=== PATIENT | female | born 1945 | race Caucasian/White ===

== ENCOUNTER 2021-04-09 11:17 | Emergency (ER) | payer OTHER, MEDICARE ==
[~2021-04-09] VITALS: Ht 165.1 cm; Wt 53.5 kg
[2021-04-09] MEDS ORDERED: LEVOTHYROXINE88 MCG PO (13:20)
[2021-04-09] MEDS ORDERED: LISINOPRIL10 MG (13:20)
[2021-04-09] MEDS ORDERED: AMOX TR-K CLV1 EACH PO (16:31)
--- NOTE | 2021-04-10 07:14 | CONS ---
[facility] [address], [place] [address] Signed DATE OF CONSULTATION: 04/09/2021 CHIEF COMPLAINT: Dog bite. HISTORY OF PRESENT ILLNESS: Subha is a 75-year-old female with a significant past medical history of smoking. She was bit by her neighbor's small dog on her left lateral calf where it joins the upper area of the Achilles tendon. She has been trying to doctor it at home but without a lot of success. 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 . She has been putting iodine in the wound and around the wound on a daily basis. Here in the emergency room, she was given her tetanus shot. She had to go see her primary care provider. One of our nurses asked that she be seen for general surgery service. PAST MEDICAL HISTORY: Hypertension, hypothyroidism. PAST SURGICAL HISTORY: None. SOCIAL HISTORY: She smokes a pack of cigarettes a day. Alcohol, none. She has 2 children. She lives with her daughter, Nikia Moise, in their apartment at [phone]. She no longer drives. She worked in [employer] her whole life. Deb Abarca is her nurse practitioner. FAMILY HISTORY: She thought her grandfather had some type of surgery for cancer and later back in the 50s. REVIEW OF SYSTEMS: She had 10 systems reviewed and really nothing more to add. ALLERGIES: None. MEDICATIONS: Levothyroxine 88 mcg p.o. daily, lisinopril 10 mg p.o. daily. PHYSICAL EXAMINATION: VITAL SIGNS: Blood pressure is 143/72, heart rate 62, respiratory rate 16, temperature is 98.2. She is 100% on room air. She is 5 feet 5 inches and 53 kg. Electronically Signed By: MINE ROLAND MD 04/10/21 0714 PATIENT NAME: SUBHA REIS CONSULTATION DATE OF : 41 REPORT #: [id number] PHYSICIAN: MINE ROLAND MD PCP: DEB ABARCA NP REPORT IS CONFIDENTIAL AND NOT TO BE RELEASED WITHOUT AUTHORIZATION [facility] [address], [place] [address] Signed GENERAL: Subha is a 75-year-old female, who appears older than her stated age. she has been a long-time smoker. She is quite thin cachexia. LUNGS: Mildly distant breath sounds. HEART: Regular rate and rhythm without murmur. ABDOMEN: Flat. EXTREMITIES: The left leg shows the bite wound about 2 cm wide x 3 cm in length in the lateral aspect of the left calf where it joins the Achilles tendon underneath is iodine on her leg and in the wound. The skin edges were scabbed in the fat underneath is dry. I do not really see any obvious granulation tissue. She has some surrounding erythema, but I think it is more chronic. I did push on the area from lateral to medial towards the wound and I really could not express any pus or feel any fluctuance. It seems to be all inflammatory rather than infectious. LABS: None. RADIOGRAPHIC STUDIES: None. ASSESSMENT AND PLAN: Subha is a 75-year-old female, who suffered a dog bite about a month ago. At this point, I think she needs some more aggressive conservative treatment. We are going to use saline soaked gauze and wrap it Jeet wrap twice a day and just wash it with soap and water. If she wants to use Medihoney that would be fine as well. We can provide her with some antibiotics and reassess next week in our [facility]. I will be out of town for a week or so and if she needed help then general surgeon certainly is available. Otherwise, I would see her when I get back. If it will granulate to any significant degree, I can skin graft much quicker. Unfortunately, she has very poor skin in that area and I do not think it is going to close otherwise unless it closes over a very long amount of time, which would be at least a couple of months. Based on our conversation, it seems her main concerns are financial. I think we will try this conservative route and reassess next week. She has expressed understanding and agrees with the above plan. Mine Roland MD ALB/MODL /[id number] Electronically Signed By: MINE ROLAND MD 04/10/21 0714 PATIENT NAME: SUBHA REIS CONSULTATION DATE OF : 41 REPORT #: [id number] PHYSICIAN: MINE ROLAND MD PCP: DEB ABARCA NP REPORT IS CONFIDENTIAL AND NOT TO BE RELEASED WITHOUT AUTHORIZATION [facility] [address] [place], [place] [address] Signed cc: MD Deb Vásquez Copies: MINE ROLAND MD ~ Electronically Signed By: MINE ROLAND MD 04/10/21 0714 PATIENT NAME: SUBHA REIS CONSULTATION DATE OF : 41 REPORT #: [id number] PHYSICIAN: MINE ROLAND MD PCP: DEB ABARCA NP REPORT IS CONFIDENTIAL AND NOT TO BE RELEASED WITHOUT AUTHORIZATION
== END 2021-04-09 16:59 | disposition home or self-care (01) ==
LOC: ED 11:17
DX: S81.852A Open bite, left lower leg, initial encounter (principal); W54.0XXA Bitten by dog, initial encounter; L97.929 Non-pressure chronic ulcer of unspecified part of left lower leg with unspecified severity; Z23 Encounter for immunization; I10 Essential (primary) hypertension; E03.9 Hypothyroidism, unspecified; Z79.899 Other long term (current) drug therapy
CPT/HCPCS: 90471; 90715; 99283-25

== ENCOUNTER 2023-01-23 10:00 | Inpatient (IN) | payer MEDICARE, OTHER ==
[~2023-01-23] VITALS: Ht 165.1 cm; Wt 53.2 kg
[2023-01-23] VITALS (9 sets, daily range): BP systolic 77–124; BP diastolic 38–71
[~2023-01-23 10:00] MED LIST: AMOX TR-K CLV1 EACH PO; LEVOTHYROXINE88 MCG PO; LISINOPRIL10 MG
[2023-01-23] MEDS ORDERED: LISINOPRIL20 MG PO (10:23)
[2023-01-23] MEDS ORDERED: ATORVASTATIN CA40 MG PO (10:23)
--- NOTE | 2023-01-23 15:25 | EKG ---
[facility] [address] [facility] [place] [address] \T\ T wave abnormality, consider lateral ischemia Abnormal ECG No previous ECGs available Confirmed by AMIRAH FISHER MD ([id number]) on 01/23/2023 3:25:25 PM Electronically Signed By: AMIRAH FISHER MD 01/23/23 1525 PATIENT NAME: GENI REIS Electrocardiogram DATE OF : 41 PHYSICIAN: AMIRAH FISHER MD REPORT #: [id number] REPORT IS CONFIDENTIAL AND NOT TO BE RELEASED WITHOUT AUTHORIZATION
--- NOTE | 2023-01-23 15:31 | NUR ---
DELAYED ENTRY DUE TO PATIENT CARES. PATIENT ADMITTED FROM ED TO ROOM 130, TRANSFERRED ON STRETCHER, MOVED TO HOSPITAL BED. VSS STABLE. PATIENT GIVEN ICE WATER AT HER REQUEST. HAS LEFT UPPER ARM SKIN TEAR FROM RECENT FALL, OTHERWISE NO SKIN ISSUES NOTED. PATIENT REPORTS SHE IS NORMALLY INDEPENDENT, LIVES IN AN APARTMENT WITH HER FAMILY, THREE DOGS AND A CAT. DENIES USING A MOBILITY DEVICE AT BASELINE. DENIES ANY FURTHER NEEDS AT THIS TIME.
--- NOTE | 2023-01-23 15:39 | NUR ---
INTO PATIENT ROOM, [place] GAMA AT THE BEDSIDE. PATIENT STATES SHE LIVES AT HOME WITH HER DAUGHTER YAYA AND SON IN LAW. PATIENT WISHES TO RETURN HOME WHEN STABLE. PATIENT STATES SHE IS INDEPENDENT AT HOME, PRIOR TO HER RECENT DECLINE. PATIENT STATES SHE HAS 3 STEPS INTO HER HOME AND 13 STAIRS WITH IN THE HOME. PATIENT STATES HAND RAILS ARE IN PLACE. PATIENT DOES RECV FOOD STAMPS AND DENIES OTHER FINANCIAL NEEDS AT THIS TIME. WILL CONTINUE TO SPEAK WITH PATIENT DURING HER STAY TO DETERMINE FURTHER CASE MANAGEMENT NEEDS.
--- NOTE | 2023-01-23 17:45 | NUR ---
LEFT UPPER ARM DRESSING REMOVED. PATIENT HAS TWO LARGE SKIN TEARS, THESE WERE CLEANED WITH WOUND JOINTER OPERATOR, ADAPTIC AND NON STICK DRESSING PLACED, WRAPPED WITH GAUZE, SECURED WITH TAPE. PICTURES TAKEN, PRINTED, AND PLACED IN CHART.
--- NOTE | 2023-01-23 18:14 | NUR ---
PATIENT MEDICATED FOR HEADACHE, ASSISTED TO TURN TO LEFT SIDE. PATIENT GETS VERY FRUSTRATED WITH CORDS AND WIRES THAT RESTRICT MOVEMENT WHEN SHE IS MOVING IN THE BED. PROVIDED APPLESAUCE HER DINNER WAS TOO SPICY TO FINISH. TOLERATING ORAL FLUIDS WELL.
--- NOTE | 2023-01-23 19:10 | NUR ---
PATIENT RESTING IN BED, DENIES ANY NEEDS. REPORTS SHE FEELS WELL. TOOK A SHORT NAP.
--- NOTE | 2023-01-23 19:13 | NUR ---
DR FISHER NOTIFIED OF / BP. VORB FOR 500CC LR OVER 30 MINUTES. REPEAT BP AND CALL HIM WITH UPDATE.
--- NOTE | 2023-01-23 19:49 | NUR ---
PT RESTING IN BED. ALERT AND ORIENTED, PT REPORTS DISDAIN FOR LINES AND B/P CUFF. CALLED WITH REPEAT B/P NO NEW ORDERS.
--- NOTE | 2023-01-23 22:24 | NUR ---
PT ALERT AND ORIENTED, SHE REPORTS SHE IS HAVING DIFFICULTY GETTING COMFORTABLE, SHE SAID "IM USED TO BE ABLE TO MOVE WITH OUT ALL THESE CORDS AND STUFF" PT ASSISTED TO TURN AND ADJUSTED LINES, SHE SAID SHE IS GOING TO TRY TO SLEEP NOW, NO REPORTS OF PAIN OR NAUSEA. PT FEELS THE CATHETER IS UNCOMFORTABLE, IT IS PATENT.
--- NOTE | 2023-01-23 23:58 | NUR ---
PT REQUESTED EDWIGE TIDWELL THIS IS PROVIDED, NO OTHER NEW CONCERNS AT THIS TIME
[2023-01-24] VITALS (7 sets, daily range): BP systolic 97–150; BP diastolic 55–83
--- NOTE | 2023-01-24 03:30 | NUR ---
PT RESTING IN BED EYES CLOSED, NO DISTRESS NOTED. SHE ALERT TO RN AT BEDSIDE TO PLACE B/P CUFF ON HER ARM, SHE BECAME ALERT AND ORIENTED.
--- NOTE | 2023-01-24 08:45 | NUR ---
DR FISHER HAS SEEN PATIENT, IS PLACING ORDERS TO D/C HARRISON, MOVE TO MED-SURG FLOOR, NO TELE. PATIENT IS A/O X4, IS EATING AND DRINKING WELL. PATIENT DENIES ANY NEEDS AT THIS TIME.
--- NOTE | 2023-01-24 09:43 | NUR ---
PATIENT UP TO BEDSIDE COMMODE AND BACK INTO BED WITH STANDBY ASSIST. PATIENT DENIES DIZZINESS, REPORTS LEGS FEEL MILDLY WEAK. DENIES ANY OTHER NEEDS AT THIS TIME.
--- NOTE | 2023-01-24 10:00 | NUR ---
CALL LIGHT ANSWERED, PATIENT UP TO BSC WITH SBA. PATIENT UNABLE TO VOID. PATIENT BACK TO BED, ICE CRAEM PROVIDED PER REQUEST. CALL LIGHT IN EASY REACH
--- NOTE | 2023-01-24 10:13 | NUR ---
PATIENT UP TO BEDSIDE COMMODE, PUT SELF BACK TO BED WITHOUT ANY DIFFICUTLY. REPORTS SHE CONTINUES TO FEEL THE URGE TO URINATE BUT HAS NOT BEEN ABLE TO SINCE HARRISON WAS DISCONTINUED. DR FISHER NOTIFIED, PYRIDIUM IS NOT AN OPTION DUE TO HER RENAL FUNCTION. NO NEW ORDERS RECEIVED.
--- NOTE | 2023-01-24 10:20 | NUR ---
REPORT RECEIVED FROM LANETTE BERNARDO. AWAITINGS PTS ARRIVAL TO MED/SURG.
--- NOTE | 2023-01-24 10:42 | NUR ---
Report to Francy GAMA, patient taken to med surg room 109 on bed with all belongings.
--- NOTE | 2023-01-24 10:52 | NUR ---
PT ARRIVED FROM CCU BY BED. PT UP IMMIDIATELY TO RESTROOM, 1 PERSON ASSIST. PT UNSTEADY ON FEET AND IMPULSIVE. FWW PROVIDED. BMAT LEVEL 3. PT HAVING BURNING WITH URINATION, PT REPORTS /10. PT HAS FREQUENCY AND URGENCY WELL, NEEDING TO GET UP EVERY 20 MINUTES TO "TRY TO GO PEE." PT ONLY PRODUCES URINE ONCE, 50ML YELLOW/CLOUDY. PT DENIES FLANK PAIN. SMALL SOFT BROWN BOWEL MOVEMENT NOTED WELL. GIRISH CARE DONE. PT UP AND DOWN FROM BED TO RESTROOM. PT ALERT AND ORINTED TO ALL. LUNG SOUNDS CLEAR. HEART TONES IRREGULAR, RATE IN THE 70'S. PTS SKIN VERY DRY. SCABS NOTED IN PLACES. DRESSING TO LEFT UPPER ARM REMAINS C/D/I. NO ADDITIONAL REQUESTS OR COMPLAINTS. CALL LIGHT WITHIN REACH. BED ALARM ON.
--- NOTE | 2023-01-24 11:52 | NUR ---
PT CONTINUES TO CALL EVERY 2-3 MINUTES WANTING TO GET UP TO URINATE. EDUCATION DONE WITH PT. PT HAS DIFFICULTY RETAINING EDUCATION. PT CONTINUES TO STATE "YOU JUST WON'T LET ME PEE." PT DESCRIBES PAIN "RIGHT WHERE I PEE." DR NATALIA STEWART. ORDERS GIVEN FOR UROJET. ORDERS ENTERED, REPEAT BACK PERFORMED. UROJET GELL APPLIED. PT SEEN TO WIPE FROM BACK TO FRONT, GETTING STOOL INTO GIRISH AREA. PT ASSISTED WITH GIRISH CARE PRIOR TO UROJET APPLICATION. PT WORKING WITH OCCUPATIONAL THERAPY. NO ADDITIONAL REQUESTS OR COMPLAINTS. CALL LIGHT WITHIN REACH.
--- NOTE | 2023-01-24 12:45 | NUR ---
THIS RN TO ROOM TO CHECK ON PT. PT UP TO RESTROOM AGAIN, UNABLE TO VOID, CONTINUES TO REPORT NEED. CRANBERRY JUICE PROVIDED. STAND BY ASSIST WITH FWW BACK TO BED. IV FLUIDS INFUSING. PO FLUIDS ENCOURAGED. NO ADDITIONAL REQUESTS OR COMPLAINTS. CALL LIGHT WITHIN REACH. BED RAILS UP. BED ALARM ON.
--- NOTE | 2023-01-24 13:18 | NUR ---
PT CALL LIGHT ON. PT REQUESTS ASSISTANCE UP TO RESTROOM. ONE PERSON ASSIST WITH FWW UP TO RESTROOM FOR LINE AND TUBE MANAGEMENT. PT VOIDS VERY SMALL AMOUNT ~25ML YELLOW URINE. GIRISH CARE PER PT, EDUCATION R/T WIPING FRONT TO BACK CONTINUES. 1 PERSON ASSIST WITH FWW BACK TO BED. IV FLUIDS CONTINUE. PO FLUIDS ENCORUAGED. ICE WATER REFILLED. NO ADDITIONAL REQUESTS OR COMPLAINTS. CALL LIGHT WITHIN REACH. BED RAILS UP.
--- NOTE | 2023-01-24 13:49 | NUR ---
THIS RN TO ROOM TO CHECK ON PT. STAFF REPORTS PT CONTINUES TO NEED TO GET UP EVERY 2-3 MINUTES. COMODE PLACED AT BEDSIDE TO ALLOW PT THE FREEDOME TO GET UP AND DOWN ON HER OWN. PT CONTINUES TO REPORT 9/10 BURNING PAIN AND URGE TO VOID "CONSTANTLY." PT RARELY VOIDS WHEN UP TO COMODE. ADDITIONAL CRANBERRY JUICE PROVIDED. PT VERY AGITATED, STATING "GOD DAMN" "SHIT" FREQEUNTLY. PT ENCORUAGED TO CALL WITH ADDITIONAL NEEDS. CALL LIGHT WITHIN REACH.
--- NOTE | 2023-01-24 14:24 | NUR ---
AFTERNOON ASSESSMENT DUE. THIS RN TO ROOM. PT VERY AGITATED, CRYING OUT AND COMPLAINTS OF BURNING PAIN AND "CONSTANT" URGENCY. PT UP AND DOWN CONTINIOUSLY TO THE BEDSIDE COMODE. VOIDS VERY SMALL AMOUNTS AT TIMES, OTHER TIMES NO VOID NOTED AT ALL. PT REPORTS ONGOING 9/10 "BURNING" PAIN IN GIRISH AREA. PT STATES "IT STEPHENS WHEN I PEE." LUNG SOUNDS REMAIN CLEAR. PT CONTINUES TO DENY FLANK PAIN. FREQUENT LOOSE/SOFT BROWN BOWEL MOVEMENTS NOTED WELL. PT ASSISTED WITH GIRISH CARE. PT CONTINUES TO WIPE BACK TO FRONT WITH STOOL SEEN IN THE GIRISH AREA. PT VERBALIZES UNDERSTANDING OF EDUCATION AND STATES "i JUST CAN'T DO IT THAT WAY." PT REPORTS AN OLD INJURY TO HER RIGHT WRIST THE RESON WHY SHE IS UNABLE TO ADJUST WIPING TECHNIQUE. OCCUPATIONAL THERAPY AWARE AND STRATIGIZING WITH PT. NO CHANGES TO SKIN. DR FISHER CALLED AND UPDATED REGARDING PTS PAIN AND AGITATION, [employer]IES ORDERED. NO LONGER AVALIABLE PER PHARMACIST. DR FISHER CONSIDERING ADDITONAL MEDICATIONS, AWAITING NEW ORDERS. PT UPDATED ON PLAN OF CARE. ADDITIONAL ICE WATER AND CRANBERRY JUICE PROVIDED. AGIATION CONTINUES. PT ENCOARUGED TO CALL AT ANY TIME. CALL LIGHT WITHIN REACH. PT CONTINUES TO GET UP AND DOWN FROM BED TO COMODE EVERY 30 SECONDS TO 1 MINUTE, INDEPENDANT WITH THIS TRANSFER.
--- NOTE | 2023-01-24 14:58 | NUR ---
PT HERE FOR GRADY AND UROSEPSIS. PT UP AND DOWN FREQUENTLY TO RESTROOM AND BESIDE COMODE THIS SHIFT WITH 1 PERSON ASSIST FOR LINE AND TUBE MANAGEMENT AND FWW. PT TOLERATING REGULAR DIET WITH MINIMAL APPITITE. PT AGIATATED THIS SHIFT AND REPORTING CONSTANT NEED TO VOID AND BURNING. PT VOIDS IN 10-25ML AMOUNTS, HARRISON CATHTER DC'D THIS MORNING. PT VOIDING QUANITTY SUFFICIENT SO FAR THIS SHIFT. FREQUENT LOOSE BROWN BOWEL MOVEMENTS NOTED WELL. PT REPORTS 9/10 URINARY PAIN, AWARE, MULTIPLE PAIN INTERVENTIONS TRIED. IV FLUIDS INFUSING AND PO FLUIDS GIVEN. PHYSICAL THERAPY AND OCCUPATIONAL THERAPY INVOLVED, PT DOES MINIMAL WORK WIHT THERAPIES R/T AGIATION. DRESSINGS OVER SKIN TEARS TO LEFT UPPER ARM. PT USES CALL LIGHT AND MAKES NEEDS KNOWN.
--- NOTE | 2023-01-24 15:17 | NUR ---
THIS RN TO ROOM TO CHECK ON PT. PT CONTINURES TO BE VERY AGITTATED UP AND DOWN TO [facility]. PRN MEDICATION GIVEN. PT ABLE TO TRANSFER SELF TO [facility] WITHOUT ASSISTANCE SAFELY. NO ADDITONAL REQUESTS OR COMPLAINTS. CALL ALONZO BURKETT.
--- NOTE | 2023-01-24 15:30 | NUR ---
Attempted to see pt. She is getting on the commode and yells, "what do you want through the curtain". Let her know I will return later.
--- NOTE | 2023-01-24 16:22 | NUR ---
MED REC COMPLETE
--- NOTE | 2023-01-24 16:30 | NUR ---
THIS RN TO ROOM TO CHECK ON PT. PT CONTINUES GETTING UP AND DOWN EVERY FEW SECONDS. PT REPORTS "I JUST CAN'T DO THIS ANYMORE." PT CONTINEUS TO REPORTS CONSTANT NEED TO VOID AND BURNING WITH URINATION, MD AWARE BLADDER SCANNED TO ENSURE PT IS NOT RETAINING URINE, 169ML NOTED IN BLADDER. EDUCATION DONE WITH PT. HEAT AND ICE PACK OFFERED, PT DECLINES. ICE WATER REFILLED. PT ENCOURAGED TO CONTINUE PO INTAKE. NO ADDITIONAL REQUESTS OR COMPLAINTS. CALL LIGHT WITHIN REACH.
--- NOTE | 2023-01-24 16:49 | NUR ---
PATIENT UP TO COMMODE, NEW LR IVF HANGING. CRANBERRY JUICE REFILLED. PATIENT UP TO COMMODE X2 WHILE IN ROOM
--- NOTE | 2023-01-24 17:02 | NUR ---
NEW MEDICATION ORDERS. PRN PAIN MEDIATION GIVEN FOR ONGOING 9/10 BLADDER/URINARY PAIN. PT RESTING IN BED ON LEFT SIDE. PT DENIES ADDITIONAL REQUESTS OR COMPLAINTS. CALL LIGHT WITHIN REACH. BED RAILS UP.
--- NOTE | 2023-01-24 17:53 | NUR ---
THIS RN TO ROOM TO CHECK ON PT. PT REPORTS URINARY PAIN AND GIRISH AREA DISCOMFORT REMAINS AT 9/10. PT APPEARS MORE COMFORTABLE. NOW LYING ON LEFT SIDE AND REQUESTS WARM BLANKETS. PT GETTING UP MUCH LESS FREQUENTLY. PTS FAMILY ARRIVES TO VISIT. ICE WATER REFILLED, CRANBERRY JUICE PROVIDED. NO ADDITIONAL REQUESTS OR COMPLAINTS. CALL LIGHT WITHIN REACH. BED RAILS UP.
--- NOTE | 2023-01-24 18:15 | NUR ---
DR FISHER UPDATED ON PT STAUTS, DIARRHEA, AND PAIN. NEW ORDERS FOR PRIOBIOTIC GIVEN. NO ADDITIONAL NEW ORDERS AT THIS TIME.
--- NOTE | 2023-01-24 18:21 | NUR ---
THIS RN TO ROOM TO CHECK ON PT. PT RESTING IN BED, WATCHING TV. PT REPORTS 9/10 PAIN CONTINUES IN GIRISH AREA AND BLADDER. PT CONTINUES TO APPEAR MORE COMFORTABLE. THIS RN IN ROOM FOR 10 MINUTES AND PT DOES NOT GET UP TO COMODE DURING THAT TIME BUT IS RELAXED AND WATCHING TV. PT ASSITED WITH PLACING BREAFKAST ORDER. NO ADDITIONAL REQUESTS OR COMPAINTS. CALL LIGHT WITHIN REACH.
--- NOTE | 2023-01-24 19:44 | NUR ---
REPORT RECEIVED FROM DAY RN. PT IS AWAKE AN DALET, LYING ON HER BED. IV PATENT. PT HAS BSC CLOSE TO THE BED. CALL LIGHT IN REACH.
--- NOTE | 2023-01-24 23:21 | NUR ---
PT NOTES HER PAIN/BURNING WITH URINATION IS BEGINNING TO BE RELIEVED WITH TYLENOL, UROJET , NORCO, IVF AND ABX. SHE HAS BEEN UP TO THE BSC MULTIPLE TIMES. HAS HAD SEVERAL VERY SMALL LOOSE STOOLS.
--- NOTE | 2023-01-25 01:45 | NUR ---
EMPTIED THE COMMODE WITH 200ML URINE AND SMALL BM.
[2023-01-25 06:20] VITALS: BP 132/65
--- NOTE | 2023-01-25 07:21 | NUR ---
REPORT RECEIVED FROM LANETTE WALKER. PT RESTING IN BED ON RIGHT SIDE WITH EYES CLOSED, RESPIRATIONS EVEN AND UNLABORED. BED RAILS UP. CALL LIGHT WITHIN REACH. PT ALLOWED TO REST UNDSTURBED.
--- NOTE | 2023-01-25 08:34 | NUR ---
MORNING ASSESSMENT AND MEDICATION DUE. PT UP TO BEDSIDE COMODE VOIDS 300ML YELLOW URINE AND HAS A BLACK BOWEL MOVEMENT. STOOL SOFT AND TARRY. GIRISH CARE DONE PER PT. PT INDEPENDANT UP TO COMODE. PT ALERT AND OREINTED TO ALL, CALM AND COOPERATIVE. LUNG SOUNDS CLEAR. HEART TONES REGULAR AT THIS TIME, UNABLE TO SEE RYTHEM PT IS NOT ON A MONITOR. SKIN REMAINS DRY AND FRAGILE. MULTIPLE MOLES AND SKIN BUMPS. ABDOMEN SOFT AND NON TENDER. PT DENIES FLANK PAIN. PT ALSO STATES BURNING WITH URINATION HAS RESOLVED. BOWEL TONES HYPERATIVE. ABDOMEN SOFT AND NON TENDER. PT CONTINUES TO HAVE URGENCY WITH URINATION. DRESSING TO LEFT UPPER ARM CHANGED. WOUND IMPROVING. NEW ADAPTIC, NON ADHEARNT GAUZE AND KERLIX APPLIED. PT DENIES ADDITIONAL REQUESTS OR COMPLAINTS. CALL LIGHT WITHIN REACH. BED RAILS UP.
[2023-01-25 09:54] VITALS: BP 117/61
--- NOTE | 2023-01-25 10:03 | NUR ---
SPOKE TO PATIENT ABOUT THE DISCHARGE PLAN OF CARE. PATIENT PLANS TO GO HOME WITH HER DAUGHTER. PATIENT REFUSES SNF PLACEMENT. PATIENT'S FAMILY WILL HELP NEEDED. PATIENT DOES NOT HAVE ANY CASE MANAGMENT NEEDS AT THIS
--- NOTE | 2023-01-25 10:20 | NUR ---
THIS RN TO ROOM TO CHECK ON PT. PT UP TO BESIDE COMODE. ADDITIONAL VOID AND SMALL LOOSE STOOL NOTED, NOW GREEN IN COLOR. GIRISH CARE PER PT. PHYSICAL THERAPY TO BEDSIDE, PT DECLINES WORKING WITH PHYSICAL THERAPY. EDUCATION DONE. PT AGREES TO "TRY IT" THIS AFTERNOON. PT REPORTS 5/10 HEADACHE PAIN. PT DENIES NEED FOR ADDITIONAL PAIN MEDICATION AT THIS TIME. IV FLUIDS RESUMED (ABX COMPLETE). NO ADDITIONAL REQUESTS OR COMPLAINTS. CALL LIGHT WITHIN REACH. BED RAILS UP.
--- NOTE | 2023-01-25 11:39 | NUR ---
THIS RN TO ROOM TO CHECK ON PT. PT TALKING WITH FRIENDS ON THE PHONE. PT DENIES NEEDS AT THIS TIME. CALL LIGHT WITHIN REACH. BED RAILS UP.
--- NOTE | 2023-01-25 12:44 | NUR ---
PT CALL LIGHT ON. PT REPORTS SHE STARTED EATING LUNCH AND THEN BEGAN HAVING EMESIS. UNMEARUED EMESIS APPEARING LIKE UNDIGESTED FOOD. PT REPORTS "IT'S WEIRD. FOOD COMES AND IT LOOKS GOOD AND SMELLS GOOD, AND TASTES GOOD BUT THEN AFTER A FEW BITES I THROW IT UP. IT'S SO RANDOM." PT REPORTS SHE IS USALLY ABLE TO EAT ICE CREAM WITHOUT AN ISSUE. PT DENIES NASUEA AND DECLINES NAUSEA MEDICATION. PT STATES "SOMETIMES IT JUST GETS STUCK." PT REQUESTS ICE CREAM AND EATS 100ML CONTAINER WITHOUT ISSUE. PT REPORTS HEADACHE HAS RESOLVED. PT CONTINUES TO DENY BURNING WITH URINATION. ADDITONAL LOOSE BOWEL MOVEMENT SEEN, DARK GREEN/BROWN IN COLOR PER STUDENT RN (THIS RN UNABLE TO VISULIZE BM WAS FLUSHED). EDUCATION DONE WITH PT REGARDING THE IMPORTANCE OF FOLLOWING UP WITH HER PCP UPON DISCHARGE. PT VERBALZIES UNDERSTANDING. NO ADDITIONAL REQUESTS OR COMPLAINTS. CALL LIGHT WITHIN REACH. BED RAILS UP.
[2023-01-25 14:04] VITALS: BP 150/64
--- NOTE | 2023-01-25 14:04 | NUR ---
AFTERNOON ASSESSMENT DUE. DR FISHER TO BEDSIDE FOR ROUNDS. PT UPDATED ON PLAN OF CARE, NEW ORDERS ENTERED. PT DESCRIBES EMESIS EPISODES AGAIN "SOMETHING STUCK." PT VERBALIZES UNDERSTANDING OF PLAN OF CARE AND STATES HER QUESTIONS HAVE BEEN ANSWERED. PT REMAINS ALERT AND OREINTED TO ALL. PT DENEIS PAIN AND NASUEA AT THIS TIME. PT UP TO BEDSIDE COMODE X1 TO VOID. VOIDS 50ML LIGHT YELLOW URINE. ADDITIONAL SMALL BROWN SEMILIQUID BOWEL MOVEMENT NOTED. GIRISH CARE PER PT. PT BACK TO BED. LUNG SOUNDS CLEAR. HEART TONES REGULAR. SKIN REMAINS DRY WITH MOLES IN PLACES PER BASELINE. ABDOMEN SOFT AND NON TENDER. DR FISHER UPDATED REGARDING BOWEL MOVEMENTS THIS MORNING AND DIARRHEA THROUGHOUT THE DAY. DRESSING TO LEFT UPPER ARM REMAINS C/D/I. NO DRAINAGE NOTED. PT UP WITH PHYSICAL THERAPY, IV SALINE LOCKED FOR ACITIVTY. PT REMAINS MILDY UNSTEADY ON FEET. AMBULATING WITH PHYSICAL THERAPY AND FWW.
--- NOTE | 2023-01-25 14:15 | NUR ---
PT BACK FROM PHYSICAL THERAPY. IV FLUIDS RESTARTED. NO ADDITIONAL REQUESTS OR COMPLAINTS. PHYSICAL THERAPIST AT BEDSIDE WITH PT TO CONTINUE EVALUATION. CALL LIGHT WITHIN REACH.
--- NOTE | 2023-01-25 15:09 | NUR ---
HOURLY ROUNDING: PT RESTING IN BED ON RIGHT SIDE. PT REPORTS 5/10 BODY ACHES (GENERLIZED). SEE MAR FOR MEDICATION GIVEN. PT REPORTS PHYSICAL THERAPY "EXILLERATING." PT REPORTS SHE WOULD LIKE TO TAKE A NAP. LIGHTS DIMMED. NO ADDITIONAL REQUESTS OR COMPLAINTS. CALL LIGHT WITHIN REACH. BED RAILS UP.
--- NOTE | 2023-01-25 16:00 | NUR ---
THIS RN TO ROOM TO CHECK ON PT. PT RESTING IN BED ON LEFT SIDE WITH EYES CLOSED. RESPIRATIONS EVEN AND UNLABORED. BED RAILS UP. CALL LIGHT WITHIN REACH. PT ALLOWED TO REST.
--- NOTE | 2023-01-25 16:23 | NUR ---
PT HERE FOR GRADY AND UROSEPSIS. PT UP/DOWN LESS FREQUENTLY TO RESTROOM AND BESIDE COMODE THIS SHIFT, PT INDEPENDANT WITH TRANSFER. PT ABLE TO AMBULATE IN WHITE WITH FWW AND PHYSICAL THERAPY STAND BY ASSIST THIS SHIFT. PT TOLERATING REGULAR DIET POORLY, EMESIS NOTED AFTER A FEW BITES OF FOOD. PT REPORTS THIS HAS BEEN GOING ON FOR SOME TIME. PT DENIES NASUEA. BARIUM SWALLOW ORDERED. PT DENIES BURING PAIN W/URINATION THIS SHIFT, QUANTITIY SUFFICIENT. FREQUENT LOOSE BROWN BOWEL MOVEMENTS NOTED WELL WITH DARK BROWN TO BLACK STOOL THIS AM, MONITORING, MD AWARE. IV FLUIDS INFUSING, PO FLUIDS ENCOURAGED. DRESSINGS OVER SKIN TEARS TO LEFT UPPER ARM CHANGED. PT USES CALL LIGHT AND MAKES NEEDS KNOWN.
[2023-01-25 17:17] VITALS: BP 142/71
--- NOTE | 2023-01-25 17:31 | NUR ---
MEDICATION DUE. THIS RN TO ROOM. PT SITTING UP IN BED, HEAD OF BED AT 43 DEGREES. MEDICATION GIVEN. PT DECLINES DINNER, WORRIED ABOUT EMESIS. PT AGREES TO MILKSHAKE. ENSURE STRAWBERRY MILKSHAKE PROVIDED. PT REPORTS SHE HAD A GOOD VISIT WITH HER GRANDCHILDREN. PT DENIES ADDITIONAL REQUESTS OR COMPLAINTS. CALL LIGHT WITHIN REACH. BED RAILS UP.
--- NOTE | 2023-01-25 18:31 | NUR ---
THIS RN TO ROOM TO CHECK ON PT. PT RESTING ON LEFT SIDE WITH EYES CLOSED. RESPIRATIONS EVEN AND UNLABORED. BED RAILS UP. CALL LIGHT WIHTIN REACH. PT ALLOWED TO REST UNDESTURBED.
--- NOTE | 2023-01-25 20:15 | NUR ---
PT IS HAVING LEG CRAMPS. SHE STATES HER URINARY BURNING HAS BEEN COMPLETELY RELIEVED. CONTINUES TO HAVE URGENCY AND FREQUENCY, BUT NOT OFTEN. SHE WAS GIVEN NORCO 1 TAB FOR LEG CRAMPS.
[2023-01-25 20:16] VITALS: BP 129/95
--- NOTE | 2023-01-25 23:50 | NUR ---
PT APPEARS TO BE RESTING WITH EYES CLOSED. WATER AT THE BEDSDIE. CALLL LIGHT IN REACH.
--- NOTE | 2023-01-26 00:44 | NUR ---
PT HAS BEEN UP TO HER BSC TO VOID MULTIPLE TIMES. DENIES ANY BURNING OR PAIN WITH URINATION.
--- NOTE | 2023-01-26 03:27 | NUR ---
PT UP TO BSC. HAD A MODERATE SIZED LOOSE GREEN/BROWN STOOL. PT IS REMINDED TO WIPE FRONT TO BACK. BARRIER WIPES PROVIDED FOR PT'S SKIN INTEGRITY. BABY WIPES FOR PT'S HANDS AFTER TOILETING.
--- NOTE | 2023-01-26 04:34 | NUR ---
PT TO BE NPO AT 0500 FOR UPPER GI TESTT TODAY. PT IS AWARE .SIGN ON PT'S DOOR.
--- NOTE | 2023-01-26 05:05 | NUR ---
PT IS NOW NPO FOR HER GI TEST THIS MORNING.
[2023-01-26 05:28] VITALS: BP 127/68
--- NOTE | 2023-01-26 06:30 | NUR ---
PT CALLED TO SAY SHE HAD AN ACCIDENT IN BED. PT HAD DIARRHEA STOOL. DRAW SHEET, CHUX AND GOWN WERE CHANGED. PT WAS GIVEN BARRIER WIPES WHICH SHE PREFERS FOR CLEANING SELF. LPT CONTINUES TO HAVE FREQUENT URINATION AND STOOLS. SHE IS NPO FOR HER UPPER GI THIS AM.
--- NOTE | 2023-01-26 07:46 | NUR ---
Patient in bed resting, eyes closed, respirations even and non labored. Patient has no notable distress. Personal supplies and call light within reach.
--- NOTE | 2023-01-26 08:25 | NUR ---
Nathaly and I were able to go and visit with pt. Pt is having testing today. Pt is disgruntled about not being able to eat and states she is did not know why she was having a test done, but knew it had to do with swallowing. Nurse was asked to go in and remind her what test she was having done and why. No change in plan in case management at this time.
[2023-01-26 09:52] VITALS: BP 135/71
--- NOTE | 2023-01-26 10:44 | NUR ---
Patient's swallow study moved from 10am to around 1pm per their department. Updated patient regarding this time change. Patient very upset, using profanities. Tried to encouraged and calm patient-she remains visibly upset. This RN asked patient if wanted me to request something for anxiety for her from the doctor as she seams very anxious and upset surrounding the study- Patient declined. This RN left room and encouraged patient to call for needs. Patient apologized for her behavior as I left the room.
--- NOTE | 2023-01-26 13:10 | NUR ---
Patient left floor for swallow study.
[2023-01-26 13:45] VITALS: BP 132/67
--- NOTE | 2023-01-26 14:30 | NUR ---
PT REQUESTED VISIT FROM SPIRITUAL CARE. INFORMED BY PLANT CONTROL AIDE MAYGAN PT GONE TO IMAGING. WILL CHECK BACK
--- NOTE | 2023-01-26 14:52 | NUR ---
Dr. Castano to come consult patient regarding swallow study. Patient requesting to eat at this time. Current NPO order in place.
[2023-01-26 16:44] VITALS: BP 128/61
--- NOTE | 2023-01-26 19:15 | NUR ---
REPORT RECEIVED FROM LANETTE EUBANKS. PT LAYING IN BED ON LEFT SIDE. PT REPORTING TORRES AND NECK PAIN. PT REQUESTING PRN PAIN MEDICATION AND STATES "NOT THE TYLENOL, BUT THE STRONGER ONE." WILL RETURN WITH PRN PAIN MEDICATION. NO OTHER NEEDS REPORTED AT THIS TIME. CALL LIGHT IN REACH.
--- NOTE | 2023-01-26 19:38 | NUR ---
IN TO ADMINISTER PRN PAIN MEDICATIONS, SEE MAR. PT REPORTING HEADACH AND NECK ACHE 04/03. PT TAKES PO MEDICATION WITH NO ISSUES. PT DENIES ANY OTHER NEEDS AT THIS TIME. CALL LIGHT IN REACH.
[2023-01-26 20:26] VITALS: BP 127/47
--- NOTE | 2023-01-26 20:38 | NUR ---
IN TO ADMINISTER MEDICATION, SEE MAR. PT RESTING IN BED WITH EYES CLOSED RR EVEN AND UNLABORED. PT RESPONDS WHEN ADDRESSED. VITALS AND I&Os COMPLETE. ASSESSMENT COMPLETE. LUNG SOUNDS CLEAR IN GERSON. DIMINISHED IN RUL WITH SOME CRACKLES. DIMINISHED IN LLL AND RLL. BOWEL TONES ACTIVE. HEART TONES TACHYCARDIC. PT REPORTS PAIN 5/10 HEADACHE AND NECK ACHE. PRN PAIN MEDICATION ADMINISTERED PREVIOUSLY. PT DENIES ANY OTHER NEEDS AT THIS TIME. CALL LIGHT IN REACH.
--- NOTE | 2023-01-27 02:06 | NUR ---
IN TO ROUND ON PT. PT RESTING IN BED ON LEFT SIDE. RR EVEN AND UNLABORED. EYES CLOSED. I&Os COMPLETE. PT AWAKENS. ASSESSMENT COMPLETE. PT REPORTING PAIN 6/10, NECK ACHE. LUNG SOUNDS CLEAR IN GERSON. DIMINISHED IN RUL, RLL AND LLL. BOWEL TONES ACTIVE. DRESSING TO L ARM D/I WITH SMALL AMOUNT OF DRAINAGE NOTED. WATER PROVIDED. PT DENIES ANY OTHER NEEDS AT THIS TIME. CALL LIGHT IN REACH.
--- NOTE | 2023-01-27 03:44 | NUR ---
IN TO ANSWER CALL LIGHT. IV PUMP ALARMING, RESOLVED. IV IN RIGHT FOREARM LEAKING. REMOVED. NEW IV PLACED IN LEFT WRIST, SEE VASCULAR ACCESS. PT TOLERATED WELL. BLOOD RETURN NOTED. IV FLUSHES WNL. PT REQUESTING WARM BLANKET, WARM BLANKET PROVIDED. PT DENIES ANY OTHER NEEDS AT THIS TIME. CALL LIGHT IN REACH.
--- NOTE | 2023-01-27 04:19 | NUR ---
IN TO ROUND ON PT. PT SITTING ON BSC. PT REPORTING PAIN 10/10 IN NECK AND SHOULDERS. OFFERED PT HOT/COLD PACK AND PT DENIES. PT REPOSITIONS SELFT IN BED. PT STATES THE PAIN "IS LIKE NERVE PAIN, STRESS." PT DENIES ANY OTHER NEEDS AT THIS TIME. CALL LIGHT IN REACH.
[2023-01-27 05:18] VITALS: BP 134/62
[2023-01-27 09:09] VITALS: BP 137/53
[2023-01-27] MEDS ORDERED: CEFPODOXIME PR200 MG PO (11:22)
--- NOTE | 2023-01-27 11:55 | NUR ---
SPOKE TO PATIENT ABOUT THE DISCHARGE PLAN OF CARE. PATIENT PLANS TO GO HOME TO HER HOUSE. PATIENT LIVES WITH HERE DAUGHTER AND SON-INLRIVAS. PATIENT STATES THERE IS NO CHANGE TO HER DISCHARGE PLAN. PATIENT ENCOURAGED TO TALK TO CM ABOUT ANY CM ISSUES OR CONCERNS.
== END 2023-01-27 12:40 | disposition home or self-care (01) | DRG 872 ==
LOC: ED 10:00 → MS 14:09 → CCU 14:09 → MS 14:09
PROVIDERS: ADMIT Internal Medicine; ATTEND Family Medicine
PROC: 0T9B70Z Drainage of Bladder with Drainage Device, Via Natural or Artificial Opening (ICD-10-PCS; principal; 2023-01-23)
PROC: 3E03329 Introduction of Other Anti-infective into Peripheral Vein, Percutaneous Approach (ICD-10-PCS; 2023-01-23)
DX: A41.9 Sepsis, unspecified organism (principal); N17.9 Acute kidney failure, unspecified; Z68.1 Body mass index [BMI] 19.9 or less, adult; N30.00 Acute cystitis without hematuria; R65.20 Severe sepsis without septic shock; I48.0 Paroxysmal atrial fibrillation; E86.0 Dehydration; I95.9 Hypotension, unspecified; Z20.822 Contact with and (suspected) exposure to COVID-19; I12.9 Hypertensive chronic kidney disease with stage 1 through stage 4 chronic kidney disease, or unspecified chronic kidney disease; N18.30 Chronic kidney disease, stage 3 unspecified; E03.9 Hypothyroidism, unspecified; E78.5 Hyperlipidemia, unspecified; R63.4 Abnormal weight loss; R79.89 Other specified abnormal findings of blood chemistry; R13.19 Other dysphagia; F17.200 Nicotine dependence, unspecified, uncomplicated; Z79.890 Hormone replacement therapy; Z79.899 Other long term (current) drug therapy
CPT/HCPCS: 36415; 51702; 71045; 72220; 74246; 80048; 80053; 80061; 81001; 82306; 82565; 82570; 83605; 83735; 84300; 84443; 84520; 85025; 85610; 87040; 87502; 92610; 93005; 93010; 97110; 97116; 97161; 97166; 97530; 99285-25; A9270; C9803; J0696; J1650; J2270; J7030; J7120; J7121; U0003

== ENCOUNTER 2025-03-14 12:39 | Emergency (ER) | payer MEDICARE, OTHER ==
[~2025-03-14] VITALS: Ht 165.1 cm; Wt 52.5 kg
[~2025-03-14 12:39] MED LIST changes: +ATORVASTATIN CA40 MG PO; +CEFPODOXIME PR200 MG PO; +LISINOPRIL20 MG PO
[2025-03-14] MEDS ORDERED: FARXIGA5 MG PO (13:13)
[2025-03-14 13:27] LABS: BASOPHILS 0.5 % (0.1-1.2); EOSINOPHILS 1.1 % (0.7-5.8); HEMATOCRIT 36.2 % (34.1-44.9); LYMPHOCYTES 24.5 % (19.3-51.7); MCH 31.9 PG (25.6-32.2); MCHC 35.9 g/dL (32.2-35.5); MCV 88.9 fL (79.4-94.8); MONOCYTES 11.4 % (4.7-12.5); NEUTROPHILS 62.2 % (34.0-71.1); PLATELET COUNT 205 K/uL (182-369); RBC 4.07 M/uL (3.93-5.22)
[2025-03-14 13:50] LABS: ALBUMIN 3.3 g/dL (3.4-5.0); ALBUMIN/GLOBULIN RATIO 0.8 (1.1-2.4); BILIRUBIN, TOTAL 0.6 mg/dL (0.2-1.0); BUN/CREATININE RATIO 11.57 (6.0-28.6); CALCIUM 9.1 mg/dL (8.5-10.1); CREATININE, SERUM 1.21 mg/dL (0.55-1.02); PROTEIN, TOTAL 7.4 g/dL (6.4-8.2)
[2025-03-14] MEDS ORDERED: POTASSIUM CHLOR8 MEQ PO (16:02)
[2025-03-14 16:19] VITALS: BP 131/62
--- NOTE | 2025-03-15 07:24 | EKG ---
[facility] [address] [facility] [place] [address] Signed Sinus rhythm with marked sinus arrhythmia with 1st degree AV block Septal infarct , age undetermined Abnormal ECG When compared with ECG of 23-JAN-2023 11:06, Sinus rhythm has replaced Atrial fibrillation Nonspecific T wave abnormality, worse in Anterior leads Confirmed by Neyda Hilton MD ([id number]) on 03/15/2025 7:24:36 AM Electronically Signed By: NEYDA HILTON MD 03/15/25 0724 PATIENT NAME: GENI REIS Electrocardiogram DATE OF : 41 PHYSICIAN: ENYDA HILTON MD REPORT #: [id number] REPORT IS CONFIDENTIAL AND NOT TO BE RELEASED WITHOUT AUTHORIZATION
== END 2025-03-14 16:19 | disposition home or self-care (01) ==
LOC: ED 12:39
PROVIDERS: Emergency Medicine
DX: E87.6 Hypokalemia (principal); E87.1 Hypo-osmolality and hyponatremia; E87.8 Other disorders of electrolyte and fluid balance, not elsewhere classified; I10 Essential (primary) hypertension
CPT/HCPCS: 36415; 70450; 71045; 80053; 85025; 93005; 93010; 99285-25

== ENCOUNTER 2025-03-18 21:13 | Emergency (ER) | payer MEDICARE, OTHER ==
[~2025-03-18] VITALS: Ht 165.1 cm; Wt 54.2 kg
[~2025-03-18 21:13] MED LIST changes: +FARXIGA5 MG PO; +POTASSIUM CHLOR8 MEQ PO
--- OUTSIDE RECORDS SUMMARY | 2025-03-18 21:19 | XMS ---
PreManage Notification: GENI REIS Security Gun Number Events No recent Security Events currently on file CRITERIA MET - [facility] - 2 Visits in 30 Days CARE PROVIDERS There are no care providers on record at this time. Sarah has no Care Guidelines for this patient. [facility] NOTE: Visits indicate total known visits. ED/C VISIT TRACKING (12 MO.) 03/18/2025 21:13 [facility] [place] TYPE: Emergency COMPLAINT: - POSS OD 03/14/2025 12:40 [facility] [place] TYPE: Emergency COMPLAINT: - DIZZINESS DIAGNOSES: - Dizziness and giddiness - Essential (primary) hypertension - Hypo-osmolality and hyponatremia - Hypokalemia - Other disorders of electrolyte and fluid balance, not elsewhere classified INPATIENT VISIT TRACKING (12 MO.) No inpatient visits to display in this time frame [email or web address]
[2025-03-18 22:53] LABS: BILIRUBIN, URINE NEGATIVE (negative); BLOOD/HGB, URINE NEGATIVE (Negative); KETONE, URINE NEGATIVE (Negative); LEUK ESTERASE, URINE NEGATIVE (negative); NITRITE, URINE POSITIVE (negative)
[2025-03-18 23:00] LABS: RED BLOOD CELLS, URINE 0-1 /hpf (0-5)
[2025-03-18 23:01] LABS: BACTERIA, URINE RARE /hpf (negative); CASTS, URINE NONE SEEN \\lpf; COLLECTION TYPE, URINE CLEAN CATCH; CRYSTALS, URINE NONE SEEN (0-1+); REFLEX CULTURE, URINE No (No)
[2025-03-18 23:10] LABS: AMPHETAMINES, URINE NEGATIVE (NEGATIVE); BARBITURATES, URINE NEGATIVE (NEGATIVE); BENZODIAZEPINE, URINE NEGATIVE (NEGATIVE); BUPRENORPHINE, URINE NEGATIVE (NEGATIVE); CANNABINOID, URINE NEGATIVE (NEGATIVE); COCAINE, URINE NEGATIVE (NEGATIVE); ECSTASY, URINE NEGATIVE (NEGATIVE); FENTANYL, URINE NEGATIVE (NEGATIVE); METHADONE, URINE NEGATIVE (NEGATIVE); OPIATES, URINE NEGATIVE (NEGATIVE); OXYCODONE, URINE NEGATIVE (NEGATIVE); PHENCYCLIDINE, URINE NEGATIVE (NEGATIVE)
[2025-03-18 23:15] LABS: BASOPHILS 0.6 % (0.1-1.2); EOSINOPHILS 1.1 % (0.7-5.8); HEMATOCRIT 35.8 % (34.1-44.9); HEMOGLOBIN 12.7 g/dL (11.2-15.7); LYMPHOCYTES 20.8 % (19.3-51.7); MCH 32.2 PG (25.6-32.2); MCHC 35.5 g/dL (32.2-35.5); MCV 90.6 fL (79.4-94.8); MONOCYTES 9.9 % (4.7-12.5); NEUTROPHILS 67.1 % (34.0-71.1); PLATELET COUNT 221 K/uL (182-369); RBC 3.95 M/uL (3.93-5.22)
[2025-03-18] MEDS ORDERED: AMOX TR-K CLV1 EACH PO (23:18)
[2025-03-18 23:33] LABS: ALBUMIN 3.3 g/dL (3.4-5.0); ALBUMIN/GLOBULIN RATIO 0.77 (1.1-2.4); ALCOHOL, MEDICAL <3 ng/dL (<3); ALKALINE PHOSPHATASE 91 U/L (46-116); ALT (SGPT) 25 U/L (14-59); ANION GAP 12.3 (7-21); AST (SGOT) 36 U/L (15-37); BILIRUBIN, TOTAL 0.5 mg/dL (0.2-1.0); CALCIUM 8.9 mg/dL (8.5-10.1); CARBON DIOXIDE 28 mmol/L (21-32); CHLORIDE 88 mmol/L (98-107); CREATININE, SERUM 1.23 mg/dL (0.55-1.02); GLOMERULAR FILTRATION RATE,EST 44 mL/min (>60); POTASSIUM 4.3 mmol/L (3.5-5.1); PROTEIN, TOTAL 7.6 g/dL (6.4-8.2); UREA NITROGEN 16 mg/dL (7-18)
[2025-03-19] MEDS ORDERED: CEFDINIR300 MG PO (00:14)
[2025-03-19] MEDS ORDERED: CEFTRIAXONE SODIUM 1 GM in SODIUM CHLORIDE 0.9% 100 ML IV ONE (00:15)
[2025-03-19] MEDS ORDERED: SODIUM CHLORIDE 0.9% 500 ML IV PRN (00:15)
[2025-03-19] MEDS ORDERED: CEFDINIR 300 MG HOME.PACK PO ONE (00:15)
[2025-03-19 01:23] VITALS: BP 126/87
--- NOTE | 2025-03-19 19:09 | EKG ---
[facility] [address] [facility] [place] [address] Signed Sinus rhythm with premature supraventricular complexes and with occasional premature ventricular complexes Septal infarct (cited on or before 14-MAR-2025) Abnormal ECG When compared with ECG of 14-MAR-2025 13:29, premature ventricular complexes are now present premature supraventricular complexes are now present Confirmed by Jonathan Urban DO ([id number]) on 03/19/2025 7:09:13 PM Electronically Signed By: JONATHAN URBAN DO 03/19/25 1909 PATIENT NAME: GENI REIS Electrocardiogram DATE OF : 41 PHYSICIAN: JONATHAN URBAN DO REPORT #: [id number] REPORT IS CONFIDENTIAL AND NOT TO BE RELEASED WITHOUT AUTHORIZATION
== END 2025-03-19 01:22 | disposition home or self-care (01) ==
LOC: ED 21:13
PROVIDERS: Family Medicine
DX: N39.0 Urinary tract infection, site not specified (principal); E87.1 Hypo-osmolality and hyponatremia; I10 Essential (primary) hypertension; E03.9 Hypothyroidism, unspecified; F17.200 Nicotine dependence, unspecified, uncomplicated; Z79.899 Other long term (current) drug therapy
CPT/HCPCS: 36415; 70450; 71045; 80053; 80307; 81001; 84484; 85025; 93005; 93010; 99285-25; G0480; J0696

== ENCOUNTER 2025-05-08 08:03 | Day surgery (SDC) | payer MEDICARE, OTHER ==
[2025-04-07 06:08] VITALS: BP 124/74
--- NOTE | 2025-04-07 06:19 | NUR ---
DAUGHTER HERE WITH PT.
[2025-04-07 06:20] LABS: GLOMERULAR FILTRATION RATE,EST 59.0 mL/min (>60); UREA NITROGEN 16.0 mg/dL (7-18)
--- NOTE | 2025-04-07 07:02 | NUR ---
ASSISTED UP TO BR FOR PREOP VOID.
--- NOTE | 2025-04-07 07:56 | NUR ---
DR DAVIS IN TO DISCUSS LOW LAB LEVELS AND RESCEDULE PROCEDURE WITH PT AND DAUGHTER. CASE TO BE CANCELLED.
[~2025-05-08] VITALS: Ht 165.1 cm; Wt 52.0 kg
[~2025-05-08 08:03] MED LIST changes: +CEFAZOLIN SODIUM 2 GM/20 ML SYR IV SCH; +CEFDINIR300 MG PO; +HYDROCHLOROTH12.5 MG PO; +IBLOOD GLUCOSE TEST STRIP 1 EA TEST VI PRN; +LACTATED RINGER'S 1,000 ML IV SCH; +LIDOCAINE HCL 1% 5 ML SDV INJ ONE; +MULTI VITAMIN1 EACH PO; +OMEGA 3 1,0001 EACH PO
[2025-05-08 08:24] LABS: BLOOD/HGB, URINE TRACE-I (Negative); KETONE, URINE NEGATIVE (Negative); LEUK ESTERASE, URINE MODERATE (negative); NITRITE, URINE NEGATIVE (negative)
[2025-05-08 08:30] VITALS: BP 179/73
[2025-05-08 08:35] LABS: EPITHELIAL CELLS, URINE SQUAMOUS 2+ /lpf (0-1+)
[2025-05-08 08:36] LABS: BACTERIA, URINE 1+ /hpf (negative); CASTS, URINE NONE SEEN \\lpf; CRYSTALS, URINE NONE SEEN (0-1+); REFLEX CULTURE, URINE No (No)
[2025-05-08 08:58] LABS: GLOMERULAR FILTRATION RATE,EST 69.0 mL/min (>60); UREA NITROGEN 6.0 mg/dL (7-18)
[2025-05-08] MEDS ORDERED: LIDOCAINE HCL 2% 5 ML SDV ONE (09:17)
[2025-05-08] MEDS ORDERED: ACETAMINOPHEN 1,000 MG/100 ML VIAL ONE (09:17)
[2025-05-08] MEDS ORDERED: fentaNYL citrate 100 MCG/2 ML VIAL ONE (09:17)
[2025-05-08] MEDS ORDERED: DEXAMETHASONE SOD PHOS 4 MG/ML VIAL ONE (09:18)
[2025-05-08] MEDS ORDERED: KETOROLAC TROMETHAMINE 15 MG/ML VIAL IV PRN (09:30)
[2025-05-08] MEDS ORDERED: OXYCODONE/APAP 5/325 TAB PO PRN (09:30)
[2025-05-08] MEDS ORDERED: TRAMADOL HCL 50 MG TAB PO PRN (09:30)
[2025-05-08] MEDS ORDERED: PHENAZOPYRIDINE HCL 100 MG TAB PO PRN (09:30)
[2025-05-08] MEDS ORDERED: MORPHINE SULFATE 4 MG/ML VIAL IV PRN (09:30)
[2025-05-08] MEDS ORDERED: HYDROmorphone HCL 1 MG/ML SYR IV PRN (10:00)
[2025-05-08] MEDS ORDERED: fentaNYL citrate 50 MCG/ML SDV IV PRN (10:00)
[2025-05-08] MEDS ORDERED: PROCHLORPERAZINE EDISYLATE 10 MG/2 ML VIAL IV PRN (10:00)
[2025-05-08] MEDS ORDERED: IBLOOD GLUCOSE TEST STRIP 1 EA TEST VI PRN (10:00)
[2025-05-08] MEDS ORDERED: NALOXONE HCL 0.4 MG SYR IV PRN (10:00)
[2025-05-08] MEDS ORDERED: FLUORESCEIN SODIUM 500 MG/5 ML ML ONE (10:36)
[2025-05-08 12:15] VITALS: BP 156/86
[2025-05-08] MEDS ORDERED: CEFDINIR300 MG PO (13:18)
[2025-05-08] MEDS ORDERED: PYRIDIUM200 MG PO (13:18)
[2025-05-08] MEDS ORDERED: TRAMADOL HCL50 MG PO (13:18)
[2025-05-08 13:20] VITALS: BP 155/93
--- NOTE | 2025-05-08 13:50 | NUR ---
1215: PATIENT BACK IN DAY SURGERY ROOM FROM PACU. DENIES PAIN. VS CHECKED. TOLERATING CRANBERRY JUICE AND WATER. IV SITE WNL. SCDs ON. CALL LIGHT WITHIN REACH. 1243: PATIENT REQUESTED IV BE TAKEN OUT. IV DC'D WNL. TIP INTACT. DRESSING APPLIED. 1306: PATIENT ASSISTED OOB AND TO BATHROOM. GAIT UNSTEADY. VOID PER HAT. URINE BLOOD AND ORANGE TINTED DUE TO PROCEDURE AND PYRIDIUM ADMIN. ASSISTED BACK TO BED. PATIENT SITTING ON BEDSIDE. GAIT MORE STEADY RETURNING TO BED FROM BATHROOM. ASSISTED PATIENT TO GET DRESSED. VS CHECKED. 1330: DISCHARGE INSTRUCTIONS GIVEN TO PATIENT AND DAUGHTER. GAIT BACK TO PATIENT'S NORMAL. LIVES WITH DAUGHTER. DAUGHTER WILL ASSIST AT HOME. 1332: PATIENT DISCHARGED TO HOME WITH DAUGHTER VIA WHEELCHAIR.
--- NOTE | 2025-05-08 14:52 | NUR ---
05/08/25 1452 Sheets,Corina 1137 PT ARRIVED TO PACU ON 6L VIA MASK, PT ASLEEP AND RESP EVEN AND UNLABORED. HEART RATE MID 70S WITH FREQUENT PACS, BASELINE FOR PT PER DRUG DEPARTMENT WORKER. BP REMAINS STABLE. 1148 PT WOKE AND DENIES PAIN AND NAUSEA. O2 REMOVED AND HOB INCREASED. 1210 PT SIPPING WATER WITH NO CONCERNS. PT RETURNED TO ROOM WITH DAUGHTER AT BEDSIDE AND ALL QUESTIONS ANSWERED. REPORT GIVEN AND PT EATING APPLESAUCE AND SIPPING JUICE. HOB INCREASED. IV WNL THROUGHOUT RECOVERY.
[2025-05-08] MEDS ORDERED: SEVOFLURANE 250 ML BTL INH ONE (14:59)
[2025-05-08 15:00] VITALS: BP 159/76
--- NOTE | 2025-05-12 13:09 | PATH ---
[facility] [address] [facility] [place], [place] [address] Signed SPECIMEN(S): A BLADDER WALL BIOPSY SPECIMEN SOURCE: A. BLADDER WALL BIOPSY CLINICAL HISTORY: Hydroureteronephrosis, right ureteral obstruction. Recurrent UTI FINAL PATHOLOGIC DIAGNOSIS: Bladder wall biopsy: - Fragment of benign squamous epithelium, negative for dysplasia. - See comment. COMMENT: The biopsy reveals a fragment of squamous epithelium with hyperkeratosis. 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 JVR:[facility] MICROSCOPIC EXAMINATION: Histologic sections of all submitted blocks are examined by light microscopy. These findings, together with the gross examination, support the pathologic diagnosis. GROSS DESCRIPTION: The specimen, labeled and designated "Osmany George, bladder wall biopsy per requisition," is received in formalin and consists of a single resendez-white tissue fragment measuring 0.2 cm in greatest dimension. The specimen is entirely submitted in cassette A1. AA (under the direct supervision of a pathologist) The Gross Description was prepared using a voice recognition system. The report was reviewed for accuracy; however, sound-alike word errors, addition and/or deletions may occur. If there is any question about this report, please contact Client Services. PERFORMING LABORATORY: Technical component was performed by [facility], [address] [place] [id number] (CLIA# [id number]). Professional interpretation was performed by [facility], [address] [place] [id number] (CLIA#: [id number]). PATIENT NAME: GENI GEORGE PATHOLOGY DATE OF : 41 REPORT #: [id number] PHYSICIAN: T[facility] PATHOLOGY PCP: MICHELLE ABARCA NP REPORT IS CONFIDENTIAL AND NOT TO BE RELEASED WITHOUT AUTHORIZATION [facility] [address] [facility] [place], [place] [address] Signed Diagnostician: Prashanth Almendarez MD Pathologist Electronically Signed 05/12/2025 Copies: ~ PATIENT NAME: GENI GEORGE PATHOLOGY DATE OF : 41 REPORT #: [id number] PHYSICIAN: TAYLOR PATHOLOGY PCP: MICHELLE ABARCA NP REPORT IS CONFIDENTIAL AND NOT TO BE RELEASED WITHOUT AUTHORIZATION
== END 2025-05-08 13:32 | disposition home or self-care (01) ==
LOC: DS 08:03 → OPS 08:03
PROVIDERS: ATTEND Urology
PROC: 0TBB8ZX Excision of Bladder, Via Natural or Artificial Opening Endoscopic, Diagnostic (ICD-10-PCS; principal; 2025-05-08 09:30)
PROC: BT1DZZZ Fluoroscopy of Right Kidney, Ureter and Bladder (ICD-10-PCS; 2025-05-08 09:30)
DX: N13.1 Hydronephrosis with ureteral stricture, not elsewhere classified (principal); N39.0 Urinary tract infection, site not specified; N32.89 Other specified disorders of bladder; I10 Essential (primary) hypertension; I48.0 Paroxysmal atrial fibrillation; E03.9 Hypothyroidism, unspecified; E78.5 Hyperlipidemia, unspecified; F17.210 Nicotine dependence, cigarettes, uncomplicated; Z79.890 Hormone replacement therapy; Z79.899 Other long term (current) drug therapy
CPT/HCPCS: 00910; 36415; 74420; 80048; 81001; 87077; 87088; 87186; 88305; C1769; C2617; J0131; J0690; J1100; J2003; J2704; J3010; J7121; Q9967